=== PATIENT | female | born 1990 | race Caucasian/White ===

== ENCOUNTER 2018-06-30 17:15 | Emergency (ER) | payer SELFPAY ==
[~2018-06-30] VITALS: Ht 175.3 cm; Wt 80.0 kg
[2018-06-30] MEDS ORDERED: IBUPROFEN 400MG TABLET PO ONE (19:30)
[2018-06-30] MEDS ORDERED: HYDROCODONE/ACETAMINOPHEN 5/325MG TABLET PO ONE (19:45)
[2018-06-30 19:55] VITALS: BP 109/71
== END 2018-06-30 20:44 | disposition home or self-care (01) ==
LOC: ER 17:15
DX: H72.92 Unspecified perforation of tympanic membrane, left ear (principal)
CPT/HCPCS: 99283

== ENCOUNTER 2018-07-19 21:53 | Emergency (ER) | payer SELFPAY ==
[~2018-07-19] VITALS: Ht 165.1 cm; Wt 73.0 kg
[2018-07-19 22:39] VITALS: BP 124/81
== END 2018-07-20 02:13 | disposition left against medical advice (07) ==
LOC: ER 21:53
DX: R07.0 Pain in throat (principal); H92.09 Otalgia, unspecified ear; Z53.21 Procedure and treatment not carried out due to patient leaving prior to being seen by health care provider